=== PATIENT | female | born 1995 | race Caucasian/White ===

== ENCOUNTER 2017-08-22 20:28 | Emergency (ER) | payer BC ==
[~2017-08-22] VITALS: Ht 147.3 cm; Wt 50.9 kg
[2017-08-22 20:31] VITALS: TEMP 36.8; Ht 147.3 cm; Wt 50.9 kg
--- NOTE | 2017-08-22 21:09 | DIAGNOSTIC IMAGING REPORT ---
RIGHT KNEE 3 VIEWS HISTORY: Right knee/patellar pain after hiking COMPARISON: None. FINDINGS: There is no fracture or dislocation. Soft tissues are unremarkable. No radiopaque foreign bodies. IMPRESSION: No fractures. Electronically signed by: Don Sharif M.D. 08/22/2017 9:08 PM Dictated Date/Time: 08/22/2017 9:07 PM
[2017-08-22 21:30] VITALS: BP 125/76; PULSE 79; O2SAT 99
--- NOTE | 2017-08-23 01:58 | EMERGENCY ROOM VISIT NOTE ---
ED Visit Note First contact with patient: 20:35 Chief Complaint: Right knee pain and swelling. History of Present Illness: Ms. Coulter is a 22-year-old white female who ambulates into the ED complaining of right knee and swelling. Historically patient denies any previous significant injuries to the knee or swelling. Patient reports she just [place] from [place] and while on [place] she did a 150 mile hike of approximately 15-20 miles every day. Patient reports last week on Tuesday, approximately 7 days ago, she started experiencing right knee pain. She reports initially the pain was mild and has gradually increased in intensity. She places her discomfort over the superior and medial border of the patella. Her pain is only appreciated with movement of the knee and ambulation. She describes her pain as an achy sensation. At rest her pain is 0/10 and with activity it is 7/10. Her pain is also exacerbation with hyperextension of the knee and palpation. She reports she has been taken intermittent ibuprofen without relief of her discomfort with her last dose approximately 36 hours ago. Associated with her pain she has noted mild swelling over the anterior medial aspect of the knee. She denies any back pain, hip pain, thigh pain, lower leg pain, ankle pain. Review of Systems: As noted above in history of present illness. Past Medical History: Patient denies. Current Medications: Patient denies. Allergies to Medications: Patient denies. Social History: Patient is currently university student; she feels safe in her home environment; she denies tobacco use and admits to alcohol use. Physical Examination: Vital Signs: Date Time Temp Pulse Resp B/P (MAP) Pulse Ox O2 Delivery O2 Flow Rate FiO2 08/22/17 21:30 79 20 125/76 99 Room Air 08/22/17 20:31 36.8 77 16 128/81 97 Room Air GENERAL: 22-year-old female in no acute distress, nontoxic-appearing, afebrile and hemodynamically stable. NEUROLOGICAL: Awake, alert and oriented to person, place and time. Answering questions appropriately and following commands. Limped gait. SKIN: Warm, dry and pink. No soft tissue eruptions or trauma noted. RIGHT LOWER EXTREMITY: No gross bony deformity. No shortening or malrotation. No tenderness in the hip, thigh, lower leg, ankle or foot. Mild to moderate tenderness over the superior and medial aspect of the patella with mild swelling but no erythema or warmth. No laxity of the collateral or cruciate ligaments. No joint line tenderness. No tenderness over the tendinous attachments of the hamstring or muscle group. Negative Helio's test. Decreased range of motion on the right and hyperextension and minimally in flexion to the last 5-10. 5/5 muscle strength in knee flexion and extension except hyperextension. Throughout the lower leg the skin was warm and pink and capillary refill is brisk. She is able to distinguish light sensations to all dermatomes. ED Course: Patient is assessed as noted above. Patient's medication list was reviewed. Patient was offered pain medication and refused. Right knee x-rays: Were read by myself and the radiologist showing no acute fractures or dislocations. No joint effusion or foreign bodies. Patient was placed in the immobilizer and on nonweightbearing crutches. Patient was educated about today's findings and instructed on her treatment plan ; she verbalized understanding and agreement with this plan. Clinical Impression: Right knee pain. Disposition: Patient discharged home in stable condition; prior to departure she was reassessed and subjectively reported she was feeling the same. Plan: Comfort measures were discussed with the patient including rest, ice, elevation , and alternating ibuprofen and acetaminophen. Patient was encouraged to follow-up at [facility] for recheck if no better in 7-10 days and possible referral to orthopedics. Patient was encouraged return the ED for worsening/uncontrolled pain, uncontrolled swelling, leg weakness/numbness/tingling or any new/concerning symptoms.
== END 2017-08-22 21:32 | disposition home or self-care (01) ==
LOC: C.EDB 20:29 → C.EDD 21:32
DX: M25.561 Pain in right knee (principal); Z72.89 Other problems related to lifestyle